=== PATIENT | female | born 1930 | race Caucasian/White ===

== ENCOUNTER 2017-01-06 11:30 | Emergency (ER) | payer MEDICARE, BC ==
[2017-01-06] MEDS ORDERED: oxyCODONE 5 MG Tab PO ONE (11:46)
[2017-01-06 12:36] VITALS: BP 183/71
[2017-01-06] MEDS ORDERED: Take Home: Acetaminophen/oxyCODONE 325-5 MG, 5 Tab Pack PO ONE (13:09)
--- NOTE | 2017-01-07 12:20 | EDM.PDOC ---
ED HPI GENERAL MEDICAL PROBLEM - General Chief Complaint: Upper Extremity Injury/Pain Stated Complaint: FELL HURT WRIST Time Seen by Provider: 01/06/17 11:44 Source of Information: Reports: Patient History Limitations: Reports: No Limitations - History of Present Illness INITIAL COMMENTS - FREE TEXT/NARRATIVE: Pt. states that she tripped and fell, striking her R wrist on her rocking chair. Pt. states that since the fall, she has been experiencing severe discomfort, swelling, and ecchymosis. She states that she is able to move the extremity, but with increased discomfort. She denies any numbness or tingling in the distal portion of the extremity. She denies striking her head, neck pain, or trauma other than what is isolated to pt. R r wrist. Onset Date: 01/06/17 Location: Reports: Lower Extremity, Right Quality: Reports: Ache Severity: Severe Worsens with: Reports: Movement Right Wrist Pain Score (Numeric/FACES): 10 - Related Data Allergies Allergy/AdvReac Type Severity Reaction Status Date / Time hydrocodone Allergy Hallucinati Verified 01/06/17 11:36 ons Penicillins AdvReac Diarrhea Verified 01/06/17 11:36 Home Meds: Home Meds Melatonin 3 mg PO BEDTIME 12/28/14 [History] Tiotropium [Spiriva Handihaler] 2 inh DAILY 12/28/14 [History] Acetaminophen [Tylenol Extra Strength] 500 mg PO Q6HR PRN 01/17/15 [History] Mirtazapine 15 mg PO BEDTIME 01/17/15 [History] Multivitamin [Multi-Day Vitamins] 1 each PO DAILY 01/17/15 [History] Omeprazole 20 mg PO DAILY 01/17/15 [History] ALPRAZolam [Xanax] 0.25 mg PO Q4H PRN #20 tablet 02/03/15 [Rx] Docusate Sodium/Sennosides [Senna Plus] 1 tab PO BID PRN #0 02/03/15 [Rx] Non-Formulary Medication [NF Drug] 1 each PO QID #16 each 02/03/15 [Rx] Ondansetron [Zofran ODT] 4 mg PO Q4H PRN #20 tab.dis 02/03/15 [Rx] Potassium Chloride [Klor-Con M20] 20 meq PO DAILY #30 tab.er 02/03/15 [Rx] Enalapril [Vasotec] 5 mg PO DAILY 04/22/16 [History] Nitrofurantoin Macrocrystal [Macrodantin] 100 mg PO BID #12 capsule 04/22/16 [Rx ] Past Medical History Cardiovascular History: Reports: Hypertension Other Cardiovascular History: 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 - Past Surgical History GI Surgical History: Reports: Colon Other Female Surgeries/Procedures: partial kidney removed. bladder sling Social & Family History - Family History Family Medical History: Noncontributory - Tobacco Use Smoking Status *Q: Never Smoker - Caffeine Use Caffeine Use: Reports: None - Alcohol Use Days Per Week of Alcohol Use: 0 - Recreational Drug Use Recreational Drug Use: No Review of Systems - Review of Systems Review Of Systems: See Below Constitutional: Reports: No Symptoms Eyes: Reports: No Symptoms Ears: Reports: No Symptoms Nose: Reports: No Symptoms Mouth/Throat: Reports: No Symptoms Respiratory: Reports: No Symptoms Cardiovascular: Reports: No Symptoms GI/Abdominal: Reports: No Symptoms Genitourinary: Reports: No Symptoms Musculoskeletal: Reports: Joint Pain, Joint Swelling, Other (ecchymosis) Skin: Reports: No Symptoms Neurological: Reports: No Symptoms ED EXAM, GENERAL - Physical Exam Exam: See Below General Appearance: Alert, No Apparent Distress Nose: Normal Inspection Throat/Mouth: Normal Inspection Head: Atraumatic, Normocephalic Neck: Normal Inspection, Supple, Non-Tender, Full Range of Motion Respiratory/Chest: No Respiratory Distress, Lungs Clear, Normal Breath Sounds Cardiovascular: Normal Peripheral Pulses, Regular Rate, Rhythm, No Murmur Back Exam: Normal Inspection, Full Range of Motion Extremities: Other (swelling and ecchymosis to R wrist. No crepitus noted. No obvious fracture or dislocation) Course - Vital Signs Last Recorded V/S: Last Vital Signs Temp 36.8 C 01/06/17 11:37 Pulse 78 01/06/17 11:37 Resp 18 01/06/17 11:37 BP 183/71 H 01/06/17 12:35 Pulse Ox - Orders/Labs/Meds Orders: Active Orders 24 hr Category Date Time Status Wrist Comp Min 3V Rt [CR] Stat Exams 01/06/17 11:44 Taken Meds: Medications Discontinued Medications Generic Name Dose Route Start Last Admin Trade Name Alyx PRN Reason Stop Dose Admin Oxycodone HCl 5 mg 01/06/17 11:46 01/06/17 12:15 Oxycodone PO 01/06/17 11:47 5 mg ONETIME ONE Administration Oxycodone/Acetaminophen 1 packet 01/06/17 13:09 Take Home: Acetamin/Oxycodon 325-5 Mg, 5 Pack PO 01/06/17 13:10 ONETIME ONE - Radiology Interpretation Free Text/Narrative:: Minimally displaced distal R radius fracture noted. Departure - Departure Time of Disposition: 12:50 Disposition: Home, Self-Care 01 Clinical Impression: Fracture of radius, Distal radius fracture, right - Discharge Information Instructions: Radial Fracture Referrals: Hazel Perry, [Primary Care Provider] - Forms: ED Department Discharge Additional Instructions: Keep splint on. Contact [facility] [phone] to set up appointment. I spoke with Dr. Garza. He would like you to see Dr. Umana on Saturday. Percocet 5/325mg 1 every 4-6 hours as needed for pain. Follow-up in clinic in 7-10 days regarding your blood pressure. - My Orders Last 24 Hours: My Active Orders 01/06/17 11:44 Wrist Comp Min 3V Rt [CR] Stat - Assessment/Plan Last 24 Hours: My Active Orders 01/06/17 11:44 Wrist Comp Min 3V Rt [CR] Stat Assessment:: Right distal radius fracture Plan: Keep splint on. Contact [facility] [phone] to set up appointment. I spoke with Dr. Garza. He would like you to see Dr. Umana on Saturday. Percocet 5/325mg 1 every 4-6 hours as needed for pain. Follow-up in clinic in 7-10 days regarding your blood pressure.
== END 2017-01-06 13:25 | disposition home or self-care (01) ==
LOC: VM.ED 11:30
DX: S52.501A Unspecified fracture of the lower end of right radius, initial encounter for closed fracture (principal); Z88.5 Allergy status to narcotic agent; Z88.0 Allergy status to penicillin; Z79.899 Other long term (current) drug therapy; W01.190A Fall on same level from slipping, tripping and stumbling with subsequent striking against furniture, initial encounter
CPT/HCPCS: 29125; 73110; 99284; A9270; 99283-GF-25